=== PATIENT | female | born 2000 | race Caucasian/White ===

== ENCOUNTER 2018-10-23 20:04 | Emergency (ER) | payer OTHER ==
--- NOTE | 2018-10-23 20:20 | EDPHY ---
H & P Stated Complaint: R calf pain swelling x 2 days, acl surgery 6 days ago, no new trauma Source: Patient - Medical/Surgical History Hx Asthma: No Hx Chronic Respiratory Disease: No Hx Diabetes: No Hx Cardiac Disease: No Hx Renal Disease: No Hx Cirrhosis: No Hx Alcoholism: No Hx HIV/AIDS: No Hx Splenectomy or Spleen Trauma: No Other PMH: R ACL surgery 10/16 - Social History Smoking Status: Never smoked Time Seen by Provider: 10/23/18 20:08 HPI/ROS: CHIEF COMPLAINT: Right calf pain and swelling HISTORY OF PRESENT ILLNESS: The patient presents the ED with 2 days of right calf pain and swelling. The patient is 6 days status post right ACL replacement. The patient denies any chest pain or shortness of breath. The patient denies prior history of PE or DVT. She does not smoke but does use control pills. Preoperatively the patient was not particularly immobilized. The patient denies any fever, cough or congestion. She has no complaints of acute numbness or weakness. REVIEW OF SYSTEMS: A comprehensive 10 point review of systems is otherwise negative aside from elements mentioned in the history of present illness. (Lukasz Barnhart) - Physical Exam Exam: General Appearance: Alert, no distress Eyes: Pupils equal and round no pallor or injection ENT, Mouth: Mucous membranes moist Respiratory: There are no retractions, lungs are clear to auscultation Cardiovascular: Regular rate and rhythm Gastrointestinal: Abdomen is soft and nontender, no masses, bowel sounds normal Neurological: 5/5 strength noted bilateral lower extremities, normal sensory exam Skin: Surgical incisions are clean dry and intact Musculoskeletal: Neck is supple nontender Extremities: Bruising and ecchymosis noted to the right calf, posterior calf tenderness appreciated, slight asymmetry (Lukasz Barnhart) Constitutional: Initial Vital Signs Temperature (C) 37.0 C 10/23/18 20:13 Heart Rate 94 10/23/18 20:13 Respiratory Rate 16 10/23/18 20:13 Blood Pressure 113/76 10/23/18 20:13 O2 Sat (%) 97 10/23/18 20:13 O2 Delivery Mode Room Air Allergies/Adverse Reactions: No Known Allergies Allergy (Unverified 10/23/18 20:12) Home Medications: Medication Instructions Recorded Cephalexin [Keflex (*)] 500 mg PO BID #14 cap 10/23/18 [facility] 1-35-28 Tablet 10/23/18 Medical Decision Making - Diagnostics Imaging Results: Imaging Impressions Extremity Venous Study 10/23/18 20:17 Impression: No deep venous thrombosis in the right lower extremity. These findings were discussed by telephone with Dr. Janet Larson at 21:05 hour, 10/23/2018. ED Course/Re-evaluation: The patient presents to the ED for evaluation of postoperative right calf pain. The patient is noted to have mild asymmetry in a slightly positive Homans sign on exam. An ultrasound of the right lower extremity was ordered at 8:[address] p[address] Larson pending US at 9pm. (Lukasz Barnhart) 9:00 p.m.-I assumed care of this patient at shift change. Ultrasound results per Dr. Gaming: Negative for DVT. Results discussed with the patient and her mother. On exam, there is an area of ecchymosis on the inner aspect of the mid calf. Overlying this ecchymotic area is a 4cm area of erythema, warmth and tenderness, concerning for early cellulitis. Keflex prescribed. Symptomatic care and warning signs discussed. Will follow up with PCP. (Janet Larson) Differential Diagnosis: Differential diagnosis considered includes DVT, postoperative hematoma, ecchymosis, abscess, cellulitis (Lukasz Barnhart) Departure - Departure Disposition: Home, Routine, Self-Care Clinical Impression: Calf swelling Condition: Good Instructions: Leg Edema (ED) Additional Instructions: Your ultrasound is normal today. You do not have a blood clot. You may have a skin infection (cellulitis). If the red area increase or is more painful, take the antibiotics as prescribed. See your doctor if the swelling increases. Referrals: Yaz Logan MD [Primary Care Provider] - As per Instructions Prescriptions: Cephalexin [Keflex (*)] 500 mg PO BID #14 cap
[2018-10-23 21:19] VITALS: BP 131/76
== END 2018-10-23 21:19 | disposition home or self-care (01) ==
DX: R22.41 Localized swelling, mass and lump, right lower limb (principal)